=== PATIENT | female | born 1985 | race Asian ===

== ENCOUNTER 2016-07-25 10:20 | Emergency (ER) | payer BC ==
[~2016-07-25] VITALS: Ht 160 cm; Wt 79.8 kg
[~2016-07-25 10:20] MED LIST: ADIPEX PO
[2016-07-25 11:30] VITALS: BP 110/65; TEMP 98.5
== END 2016-07-25 11:30 | disposition home or self-care (01) ==
LOC: ED 10:20
DX: O26.859 Spotting complicating pregnancy, unspecified trimester (principal)
CPT/HCPCS: 99281

== ENCOUNTER 2018-08-19 14:51 | Emergency (ER) | payer BC ==
[~2018-08-19] VITALS: Ht 160 cm; Wt 85.7 kg
[2018-08-19 15:35] LABS: PLATELET COUNT 250 K/uL (152-353)
[2018-08-19 16:35] VITALS: BP 113/65; TEMP 97.5
== END 2018-08-19 16:41 | disposition home or self-care (01) ==
LOC: ED 14:51
PROVIDERS: Emergency Medicine
DX: N92.0 Excessive and frequent menstruation with regular cycle (principal)
CPT/HCPCS: 36415; 84702; 85027; 99283

== ENCOUNTER 2020-06-06 13:46 | Outpatient (CLI) | payer BC | END 2020-06-06 21:57 | disposition home or self-care (01) | LOC: MRI 13:46 | PROVIDERS: ATTEND Orthopaedic Surgery | DX: M54.12 Radiculopathy, cervical region (principal) ==